=== PATIENT | male | born 1970 | race Caucasian/White ===

== ENCOUNTER 2017-12-13 02:40 | Emergency (ER) | payer MEDICAID ==
[2017-12-13 02:41] VITALS: BMI 25.4
[2017-12-13 03:04] VITALS: RESP 16
[2017-12-13] MEDS ORDERED: Albuterol 0.083% Inhal Sol (2.5 mg/3 mL) UD IH STA (03:18)
[2017-12-13] MEDS ORDERED: Albuterol 0.083% Inhal Sol (2.5 mg/3 mL) UD ONE (03:53)
--- NOTE | 2017-12-13 03:54 | C.PDOC ---
History Of Present Illness 47 y/o male presents to the ED for evaluation of nasal congestion for 1 week. States he has been unable to sleep, prompting this visit. Otherwise patient denies any fever, chills, cough, SOB, abdominal pain, vomiting, diarrhea, or other associated symptoms. Time Seen by Provider: 12/13/17 02:42 Chief Complaint (Nursing): Cough, Cold, Congestion History Per: Patient History/Exam Limitations: no limitations Onset/Duration Of Symptoms: Days Current Symptoms Are (Timing): Still Present Sick Contacts (Context): None Associated Symptoms: Nasal Congestion Past Medical History Reviewed: Historical Data, Nursing Documentation, Vital Signs Vital Signs: Last Vital Signs Temp 98.8 F 12/13/17 02:53 Pulse 96 H 12/13/17 02:53 Resp 16 12/13/17 02:53 BP 139/85 12/13/17 02:53 Pulse Ox 98 12/13/17 02:53 - Medical History PMH: CHF, CVA, Diabetes (type II), Hypercholesterolemia Denies: Arthritis, COPD, HTN, Hypothyroidism, Pneumonia, Rheumatoid Arthritis Surgical History: No Surg Hx - [facility] Procedures INTRODUCE OTH THROMBOLYTIC IN PERIPH VEIN, PERC (01/07/16) Family History: States: No Known Family Hx - Social History Hx Alcohol Use: No Hx Substance Use: No - Immunization History Hx Tetanus Toxoid Vaccination: No Hx Influenza Vaccination: No Hx Pneumococcal Vaccination: No Review Of Systems Constitutional: Negative for: Fever, Chills ENT: Positive for: Nose Discharge, Nose Congestion. Negative for: Throat Pain Cardiovascular: Negative for: Chest Pain Respiratory: Negative for: Cough, Shortness of Breath, Wheezing Gastrointestinal: Negative for: Vomiting, Abdominal Pain, Diarrhea Neurological: Negative for: Weakness, Headache, Dizziness Physical Exam - Physical Exam Appears: Well, Non-toxic, No Acute Distress Skin: Normal Color, Warm, No Rash Head: Normacephalic Eye(s): bilateral: PERRL Ear(s): Bilateral: Normal Nose: Discharge (clear rhinorrhea), Other (bilateral nasal congestion) Oral Mucosa: Moist, No Drooling Tongue: Normal Appearing Lips: Normal Appearing Throat: Normal, No Erythema, No Exudate Neck: Trachea Midline, No Midline Cervical Tenderness, Supple Chest: Symmetrical, No Deformity, No Tenderness Cardiovascular: Rhythm Regular, No Murmur, No JVD, Other ((-) carotid bruits B/L) Respiratory: No Accessory Muscle Use, No Rales, No Rhonchi, No Stridor, No Wheezing Gastrointestinal/Abdominal: Soft, No Tenderness Extremity: Normal ROM, No Pedal Edema, No Deformity, No Swelling Neurological/Psych: Oriented x3, Normal Speech, Normal Motor, Normal Sensation, Normal Reflexes ED Course And Treatment O2 Sat by Pulse Oximetry: 98 (RA) Pulse Ox Interpretation: Normal - Radiology CXR: Interpreted by Me, Viewed By Me CXR Interpretation: Yes: No Acute Disease Progress Note: CXR ordered and reviewed. Patient received albuterol nebulizer x1 and 60 mg PO prednisone in the ED. On re-eval, pt is afebrile, hemodynamicaly stable. Non-toxic. PulsEOx 98% RA. ENT: no acute findings. uvual midline, no edema. neck: Supple, (-) meningeal sign, (-) JVD. Lungs: CTA B/L, BS equal B/L. CVS: (+)S1S2, reg. Abd: benign, (-) guarding, (-) rebound. Neurologicaly intact. CXR review and appears without acute abnoramlities. Pt has clinical findings c/w URI. Pt advised on course of ds. ref. to F/U with PMD, Corporate Relations Director in2 -3 days for re-eval. return to Ed if any worsening or new changes. Disposition Counseled Patient/Family Regarding: Studies Performed, Diagnosis, Need For Followup, Rx Given - Disposition Referrals: Munir Sheriff MD [Staff Provider] - Disposition: HOME/ ROUTINE Disposition Time: 04:02 Condition: STABLE Additional Instructions: Take medication as prescribed follow up with PMD in 2-3 days for re-evaluation. return to Ed if any worsening or new changes. Prescriptions: Loratadine [Claritin] 10 mg PO DAILY #20 tab Prednisone [Deltasone] 40 mg PO DAILY #6 tablet Instructions: Upper Respiratory Infection (ED) Forms: [facility] [employer] [facility] (Maltese) - Clinical Impression Clinical Impression: Viral disease, Upper respiratory infection - PA / [employer] / Resident Statement MD/DO has reviewed & agrees with the documentation as recorded. - Scribe Statement The provider has reviewed the documentation as recorded by the Scribe (Taylor Gardiner) All medical record entries made by the Scribe were at my direction and personally dictated by me. I have reviewed the chart and agree that the record accurately reflects my personal performance of the history, physical exam, medical decision making, and the department course for this patient. I have also personally directed, reviewed, and agree with the discharge instructions and disposition.
[2017-12-13 04:19] VITALS: BP 125/73; PULSE 84; TEMP 98.4; O2SAT 100
--- NOTE | 2017-12-13 09:33 | RAD ---
Chest x-ray two views History: Cough. COMPARISON: 12/13/2017 Findings: Biapical pleural thickening. No focal infiltrate or effusion. Heart size within normal limits. Degenerative changes in the spine. Impression: No focal infiltrate or effusion.
== END 2017-12-13 04:20 | disposition home or self-care (01) ==
LOC: C.ER 02:40
DX: J06.9 Acute upper respiratory infection, unspecified (principal); E11.9 Type 2 diabetes mellitus without complications; F17.210 Nicotine dependence, cigarettes, uncomplicated